=== PATIENT | male | born 1990 | race Caucasian/White ===

== ENCOUNTER 2019-06-01 22:12 | Emergency (ER) | payer OTHER ==
[~2019-06-01] VITALS: Ht 172.7 cm; Wt 63.5 kg
[2019-06-02] MEDS ORDERED: TRISPEC DMX LI118 ML PO (03:47)
[2019-06-02] MEDS ORDERED: ZITHROMAX500 MG PO (03:47)
== END 2019-06-02 04:05 | disposition home or self-care (01) ==
LOC: ER 22:12
DX: J11.1 Influenza due to unidentified influenza virus with other respiratory manifestations (principal); B96.0 Mycoplasma pneumoniae [M. pneumoniae] as the cause of diseases classified elsewhere; R50.9 Fever, unspecified

== ENCOUNTER 2019-09-16 10:28 | Emergency (ER) | payer OTHER ==
[~2019-09-16] VITALS: Ht 170.2 cm; Wt 63.5 kg
[~2019-09-16 10:28] MED LIST: TRISPEC DMX LI118 ML PO; ZITHROMAX500 MG PO
== END 2019-09-16 14:42 | disposition home or self-care (01) ==
LOC: ER 10:28
DX: B33.8 Other specified viral diseases (principal); B96.0 Mycoplasma pneumoniae [M. pneumoniae] as the cause of diseases classified elsewhere

== ENCOUNTER 2019-10-07 06:25 | Emergency (ER) | payer OTHER ==
[~2019-10-07] VITALS: Ht 172.7 cm; Wt 63.5 kg
== END 2019-10-07 12:33 | disposition home or self-care (01) ==
LOC: ER 06:25
DX: R53.81 Other malaise (principal); R50.9 Fever, unspecified

== ENCOUNTER 2020-01-24 12:58 | Emergency (ER) | payer OTHER ==
[~2020-01-24] VITALS: Ht 177.8 cm; Wt 68.0 kg
[2020-01-24] MEDS ORDERED: MUCINEX DM ER1 EAC1 PO (17:50)
[2020-01-24] MEDS ORDERED: ZITHROMAX500 MG PO (17:50)
[2020-01-24] MEDS ORDERED: FLONASE ALLERG9.9 ML NASAL (17:50)
[2020-01-24] MEDS ORDERED: KETO10TA2 PO (17:50)
== END 2020-01-24 18:40 | disposition home or self-care (01) ==
LOC: ER 12:58
DX: J06.9 Acute upper respiratory infection, unspecified (principal); B96.0 Mycoplasma pneumoniae [M. pneumoniae] as the cause of diseases classified elsewhere; Z03.818 Encounter for observation for suspected exposure to other biological agents ruled out